=== PATIENT | female | born 1950 | race Caucasian/White ===

== ENCOUNTER → 2018-05-07 | Outpatient (CLI) | payer MEDICARE, BC ==
[~2018-05-07] MED LIST: ANTIVERT 12.512.5 MG PO; ATIVAN 0.50.5 MG/TAB PO; DOMPERIDONE PO; EFFEXOR XR37.5 MG/CA PO; FLONASE NASAL S16 GM NS; FOLIC ACID 11 MG/TA1 PO; LEXAPRO 10MG10 MG PO; METHOTREXA2.5 MG/TAB PO; OSPHENA 60 MG PO; PAXIL 10MG10 MG PO; PAXIL 30MG30 MG PO; PRIL40 PO; SINGULAIR 110 MG/TAB PO; SYNTHROID0.075 MG/T PO; ZESTRIL2.5 MG PO; ZYRTEC 10MG10 MG PO
[2018-05-07 16:41] LABS: BASO % 0.7 % (0.0-2.0); EOS # 0.3 (0.0-0.7); EOS % 4.4 % (0-4.0); GRAN # 3.1 (1.4-6.5); GRAN % 53.6 % (42.2-75.2); HEMATOCRIT 37.1 % (37.0-47.0); HEMOGLOBIN 11.8 g/dl (12.5-16.0); LYMPH % 34.4 % (20.0-51.0); MEAN CELL VOLUME 89 fl (80.0-100.0); MEAN CORPUSCULAR HEMOGLOBIN 28 pg (27.0-31.0); MEAN CORPUSCULAR HGB CONC 32 g/dl (33.0-37.0); MEAN PLATELET VOLUME 11.9 fl (7.4-10.4); MONO # 0.4 (0.1-0.6); MONO % 6.7 % (1.7-9.3); PLATELET COUNT 273 K/mm3 (130-400); RED BLOOD COUNT 4.18 M/mm3 (4.10-5.30); REDCELL DISTRIBUTION WIDTH-CV 14.9 % (11.5-14.5)
[2018-05-07 16:49] LABS: ALBUMIN 3.9 gm/dL (3.5-5.0); BILIRUBIN,TOTAL 0.2 mg/dL (0.0-1.0); CALCIUM 9.4 mg/dL (8.4-10.2); CREATININE, serum 0.8 mg/dL (0.52-1.25); POTASSIUM 4.2 mmol/L (3.4-5.0)
== END ==
LOC: ZCOL.LAB 16:33
PROVIDERS: Family Medicine
DX: Z01.818 Encounter for other preprocedural examination (principal)

== ENCOUNTER 2019-02-24 13:04 | Emergency (ER) | payer MEDICARE, BC ==
[~2019-02-24] VITALS: Ht 157.5 cm; Wt 72.7 kg
[2019-02-24 13:11] VITALS: TEMP 98.6
[2019-02-24 14:03] LABS: BASO % 0.6 % (0.0-2.0); EOS # 0.3 (0.0-0.7); EOS % 4.7 % (0-4.0); GRAN # 3.4 (1.4-6.5); GRAN % 55.7 % (42.2-75.2); HEMOGLOBIN 11.5 g/dl (12.5-16.0); LYMPH % 33.1 % (20.0-51.0); MEAN CELL VOLUME 87 fl (80.0-100.0); MEAN CORPUSCULAR HEMOGLOBIN 28 pg (27.0-31.0); MEAN CORPUSCULAR HGB CONC 32 g/dl (33.0-37.0); MEAN PLATELET VOLUME 11.7 fl (7.4-10.4); MONO # 0.4 (0.1-0.6); MONO % 5.7 % (1.7-9.3); PLATELET COUNT 285 K/mm3 (130-400); RED BLOOD COUNT 4.11 M/mm3 (4.10-5.30); REDCELL DISTRIBUTION WIDTH-CV 14.9 % (11.5-14.5)
[2019-02-24] MEDS ORDERED: LAMICTAL150 MG PO (14:03)
[2019-02-24] MEDS ORDERED: COZAAR100 MG PO (14:03)
[2019-02-24 14:08] LABS: HEMATOCRIT 35.7 % (37.0-47.0)
[2019-02-24 14:19] LABS: COLLECTION METHOD CLEAN CATCH
[2019-02-24 14:20] LABS: ALBUMIN 4.5 gm/dL (3.5-5.0); BILIRUBIN,TOTAL 0.7 mg/dL (0.0-1.0); C-REACTIVE PROTEIN 1.3 mg/dL (0.0-0.9); CALCIUM 9.3 mg/dL (8.4-10.2); CREATININE, serum 0.79 (0.52-1.25); POTASSIUM 3.8 mmol/L (3.4-5.0); TOTAL PROTEIN 7.4 gm/dL (6.4-8.2)
[2019-02-24 14:24] LABS: PH 7 (5-8); SQUAMOUS EPITHELIAL 0-2 /hpf; URINE APPEARANCE Clear; URINE BACTERIA None Seen /hpf; URINE BILIRUBIN Negative (NEGATIVE); URINE BLOOD Negative (NEGATIVE); URINE COLOR Straw; URINE GLUCOSE Negative (NEGATIVE); URINE KETONE Negative (NEGATIVE); URINE LEUKOCYTE ESTERASE Trace (NEGATIVE); URINE NITRATE Negative (NEGATIVE); URINE PROTEIN(semi-quant) Negative (NEGATIVE); URINE RBC 0-2 /hpf; URINE UROBILINOGEN Negative (NEGATIVE)
[2019-02-24] MEDS ORDERED: NORCO 325 MG-51 TAB PO (15:18)
[2019-02-24 15:39] VITALS: BP 134/80; PULSE 72
== END 2019-02-24 15:41 | disposition home or self-care (01) ==
LOC: COL.ER 13:04
PROVIDERS: Emergency Medicine
DX: K55.069 Acute infarction of intestine, part and extent unspecified (principal); I10 Essential (primary) hypertension; Z79.51 Long term (current) use of inhaled steroids
CPT/HCPCS: J1885; J2405; J7030; Q9967

== ENCOUNTER → 2021-10-04 | Outpatient (CLI) | payer MEDICARE, BC ==
[~2021-10-04] MED LIST changes: +COZAAR100 MG PO; +LAMICTAL150 MG PO; +NORCO 325 MG-51 TAB PO
== END ==
LOC: MHCPAIN 13:00
DX: M51.16 Intervertebral disc disorders with radiculopathy, lumbar region (principal); M53.3 Sacrococcygeal disorders, not elsewhere classified

== ENCOUNTER → 2021-10-20 | Outpatient (CLI) | payer MEDICARE, BC | LOC: MHCPAIN 10:54 | DX: M47.817 Spondylosis without myelopathy or radiculopathy, lumbosacral region (principal); M53.3 Sacrococcygeal disorders, not elsewhere classified; M54.16 Radiculopathy, lumbar region | CPT/HCPCS: J1100; Q9967 ==

== ENCOUNTER → 2021-11-01 | Outpatient (CLI) | payer MEDICARE, BC | LOC: MHCPAIN 10:25 | DX: M51.16 Intervertebral disc disorders with radiculopathy, lumbar region (principal) | CPT/HCPCS: G0463 ==

== ENCOUNTER → 2022-03-31 | Outpatient (CLI) | payer MEDICARE, BC | LOC: MHCPAIN 11:32 | DX: M54.16 Radiculopathy, lumbar region (principal) | CPT/HCPCS: G0463 ==

== ENCOUNTER → 2022-12-05 | Outpatient (CLI) | payer MEDICARE, BC | LOC: MHCPAIN 11:39 | DX: M54.16 Radiculopathy, lumbar region (principal); M16.11 Unilateral primary osteoarthritis, right hip | CPT/HCPCS: G0463 ==

== ENCOUNTER 2023-05-07 10:52 | Emergency (ER) | payer MEDICARE, BC ==
[~2023-05-07] VITALS: Ht 157.5 cm; Wt 72.7 kg
[2023-05-07 10:58] VITALS: TEMP 98.2
[2023-05-07 11:37] LABS: COLLECTION METHOD CLEAN CATCH
[2023-05-07 11:41] LABS: PH 5.5 (5.0-8.5); URINE APPEARANCE CLEAR (CLEAR/HAZY); URINE BLOOD NEGATIVE (NEGATIVE); URINE COLOR YELLOW (YELLOW); URINE GLUCOSE NEGATIVE (NEGATIVE); URINE KETONE NEGATIVE (NEGATIVE); URINE NITRATE NEGATIVE (NEGATIVE); URINE PROTEIN(semi-quant) NEGATIVE (NEGATIVE); URINE UROBILINOGEN 0.2 E.U/dL (0.2-1.0)
[2023-05-07] MEDS ORDERED: NS 1,000 ML IV ONE (11:45)
[2023-05-07 11:51] LABS: BASO # 0.1 K/mm3 (0.0-0.2); BASO % 0.8 % (0.0-2.0); EOS # 0.3 K/mm3 (0.0-0.7); EOS % 4.5 % (0.0-4.0); GRAN # 3.8 K/mm3 (1.4-6.5); GRAN % 63.4 % (42.2-75.2); HEMATOCRIT 39.2 % (37.0-47.0); HEMOGLOBIN 12.5 g/dl (12.5-16.0); LYMPH # 1.5 K/mm3 (1.2-3.4); LYMPH % 25.7 % (20.0-51.0); MEAN CELL VOLUME 92 fl (80.0-100.0); MEAN CORPUSCULAR HEMOGLOBIN 29 pg (27-31); MEAN CORPUSCULAR HGB CONC 32 g/dl (33.0-37.0); MEAN PLATELET VOLUME 11.5 fl (7.4-10.4); MONO # 0.3 K/mm3 (0.1-0.6); MONO % 5.4 % (1.7-9.3); PLATELET COUNT 300 K/mm3 (130-400); RED BLOOD COUNT 4.28 M/mm3 (4.10-5.30); REDCELL DISTRIBUTION WIDTH-CV 12.7 % (11.5-14.5)
[2023-05-07] MEDS ORDERED: PROTONIX 40MG T40 MG PO (12:04)
[2023-05-07] MEDS ORDERED: INDERAL60 MG PO (12:04)
[2023-05-07] MEDS ORDERED: ZOLOFT 50MG50 MG PO (12:05)
[2023-05-07] MEDS ORDERED: PLAVIX 75MG TAB75 MG PO (12:05)
[2023-05-07] MEDS ORDERED: LYRICA 50MG CAP50 MG PO (12:07)
[2023-05-07] MEDS ORDERED: ASPIRIN 81M81 MG/TA2 PO (12:09)
[2023-05-07] MEDS ORDERED: HIZENTRA SQ (12:10)
[2023-05-07 12:13] LABS: BILIRUBIN,TOTAL 0.5 mg/dL (0.2-1.2); CALCIUM 9.9 mg/dL (8.4-10.2); CREATININE, serum 0.84 mg/dL (0.57-1.11); POTASSIUM 3.8 mmol/L (3.5-4.5); TOTAL PROTEIN 7.2 gm/dL (6.2-8.1)
[2023-05-07] MEDS ORDERED: NEURONTIN100 MG/CAP PO (12:14)
[2023-05-07] MEDS ORDERED: CVS SPECTRAVIT1 EA15 PO (12:15)
[2023-05-07] MEDS ORDERED: Iohexol 300 - 100 ML VIAL IV ONE (13:13)
[2023-05-07] MEDS ORDERED: NS 100 ML IV SCH (13:14)
[2023-05-07] MEDS ORDERED: ZOFRAN ODT4 MG PO (13:34)
[2023-05-07 14:18] VITALS: BP 159/48; PULSE 72
== END 2023-05-07 14:18 | disposition home or self-care (01) ==
LOC: COL.ER 10:52
PROVIDERS: Physician Assistant
DX: R10.11 Right upper quadrant pain (principal); R11.0 Nausea
CPT/HCPCS: J7030; Q9967